=== PATIENT | male | born 1995 | race Caucasian/White ===

== ENCOUNTER 2017-10-22 13:09 | Emergency (ER) | payer OTHER ==
[~2017-10-22] VITALS: Ht 177.8 cm; Wt 123.8 kg
[2017-10-22 14:20] VITALS: Ht 177.8 cm; Wt 123.8 kg
[2017-10-22 15:31] VITALS: BP 174/73
== END 2017-10-22 15:31 | disposition home or self-care (01) ==
LOC: ED 13:09
DX: S93.402A Sprain of unspecified ligament of left ankle, initial encounter (principal); X50.1XXA Overexertion from prolonged static or awkward postures, initial encounter; Y93.67 Activity, basketball; Y92.89 Other specified places as the place of occurrence of the external cause; Y99.8 Other external cause status

== ENCOUNTER 2020-07-08 12:21 | Emergency (ER) | payer OTHER ==
[~2020-07-08] VITALS: Ht 177.8 cm; Wt 132.4 kg
[2020-07-08 12:33] VITALS: Ht 177.8 cm; Wt 132.4 kg
[2020-07-08 15:00] VITALS: BP 131/84
== END 2020-07-08 15:00 | disposition home or self-care (01) ==
LOC: ED 12:21
DX: S20.219A Contusion of unspecified front wall of thorax, initial encounter (principal); V49.9XXA Car occupant (driver) (passenger) injured in unspecified traffic accident, initial encounter; Y93.I9 Activity, other involving external motion; Y92.413 State road as the place of occurrence of the external cause; Y99.8 Other external cause status
CPT/HCPCS: J1885; Q0092